=== PATIENT | male | born 1995 | race Caucasian/White ===

== ENCOUNTER 2022-06-21 05:42 | Emergency (ER) | payer BC ==
[~2022-06-21] VITALS: Ht 180.3 cm; Wt 86.2 kg
[2022-06-21 06:30] VITALS: BP_SYST 126
--- NOTE | 2022-06-21 06:30 | NUR ---
Patient ambulatory to bed 7 for evaluation and treatment
[2022-06-21] MEDS ORDERED: IBUPROFEN 600 MG TABLET PO ONE (07:15)
[2022-06-21] MEDS ORDERED: IBUP-1969 PO (07:26)
--- NOTE | 2022-06-21 07:37 | NUR ---
FIRST CONTACT. PENDING D/C.
--- NOTE | 2022-06-21 08:01 | NUR ---
velcro wrist splint applied to patient's right wrist. patients pms present before splint application and after splint application.
== END 2022-06-21 08:10 | disposition home or self-care (01) ==
LOC: SED 05:42
DX: M79.641 Pain in right hand (principal); R20.2 Paresthesia of skin; Z79.899 Other long term (current) drug therapy
CPT/HCPCS: 99283